=== PATIENT | female | born 2000 | race Caucasian/White ===

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

== ENCOUNTER 2020-06-26 15:26 | Emergency (ER) | payer OTHER, SELFPAY ==
[2020-06-26 16:03] VITALS: BP 144/86; PULSE 80; RESP 20; TEMP 37.1; O2SAT 98
[2020-06-26 16:10] VITALS: BP 144/86; PULSE 80; RESP 20; TEMP 37.1; O2SAT 98
--- NOTE | 2020-06-26 16:18 | ED.GENADULT ---
HPI - General Adult General Chief complaint: Wound/Laceration Stated complaint: right foot toe infection Time Seen by Provider: 06/26/20 16:18 Source: patient and RN notes reviewed Mode of arrival: ambulatory Limitations: no limitations History of Present Illness HPI narrative: 19-year-old female presents with complaints of right great toe with several sores, swelling, warmth, tenderness, and redness for the past 1-2 weeks. Johnathan reports smashing RT great toe 3 weeks ago, initially had drainage-resolved, over the past 2-3 days increase tenderness, redness, and swelling. Soak foot in peroxide and warm water without relief. Denies numbness or tingling. No weakness of toe. Denies fever or chills. Denies immobility. Exacerbation consists of wearing shoes, movement, and palpation of toe. No relieving factors. Break in skin. Immunizations up-to-date. Denies abdominal pain, nausea, or vomiting. Tolerating po intake well. LMP unknown due to control usage since age 16. The patient reports she have not been diagnosed with COVID-19. The patient reports she is not waiting for the results of a COVID-19 lab test. The patient reports she do not have weakness or fatigue. The patient reports she do not have a new or worsening cough or shortness of breath. Denies chest pain. The patient reports she do not have any rhinorrhea, congestion, sore throat, loss of taste or smell, or diarrhea. Denies recent traveling. Denies concerns for COVID-19 or exposures been home with limited outdoor exposure except for essential household needs, work, and return home. At this time, patient is not suspected of having COVID-19. Some parts of this dictation were generated by voice recognition software and may contain typographical and/or grammatical inaccuracies. Related Data Allergies Allergy/AdvReac Type Severity Reaction Status Date / Time No Known Allergies Allergy Verified 06/26/20 16:03 Review of Systems Review of Systems: Narrative: CONSTITUTIONAL: Denies fever, chills, sweats. EYES: Denies visual changes, redness, discharge. ENT: Denies rhinorrhea, congestion, sore throat, otalgia. CARDIOVASCULAR: Denies chest pain, palpitations, edema. RESPIRATORY: Denies dyspnea, wheezing, cough. GASTROINTESTINAL: Denies abdominal pain, nausea, vomiting, diarrhea. SKIN: Denies rash or itching. Complains of RT great toe with several sores, drainage-(resolved), swelling, warmth, tenderness, and redness. MUSCULOSKELETAL: Denies acute back pain or myalgia. Complains of RT great toe with swelling, warmth, tenderness, and redness. NEUROLOGIC: Denies numbness or focal weakness. PSYCHIATRIC: Denies anxiety or depression. All other systems reviewed are negative, except as documented in HPI and below. PMFSH Past Medical History Medical History (Updated 07/03/20 @ 03:24 by YUNG Lambert) Obese Surgical History Surgical History (Updated 07/03/20 @ 03:24 by YUNG Lambert) History of tonsillectomy Family History Family History (Updated 07/03/20 @ 03:26 by YUNG Lambert) Father Unknown family medical history Mother Hypertension Diabetes mellitus Social History Social History (Updated 07/03/20 @ 03:27 by YUNG Lambert) Smoking status: Never smoker Tobacco type: cigarettes Second hand tobacco smoke exposure: No Alcohol intake: never Substance use: never Living arrangements: with family Occupation/Education: occupation Gender identity (if verbalized by the patient): Female Sexual Orientation (if Verbalized by the Patient): Straight or Heterosexual Comments At time of signature, agree with nurse past medical, surgical, social, and family history. There is no relevant patient or family history pertinent to the presenting complaint. Exam Narrative: Exam Narrative: GENERAL: This is a well-nourished, well-developed patient, in no apparent distress. Talks in full sentences and ambul
== END 2020-06-26 16:35 | disposition home or self-care (01) ==
PROVIDERS: Emergency Provider Nurse Practitioner Family; PCP Pediatrics
DX: L03.031 Cellulitis of right toe (principal); L03.115 Cellulitis of right lower limb
CPT/HCPCS: 10060; 99213; G0463

== ENCOUNTER 2020-12-31 18:39 | Emergency (ER) | payer OTHER, SELFPAY ==
[2020-12-31 18:43] VITALS: BP 129/79; PULSE 92; RESP 18; TEMP 37.1; O2SAT 97
--- NOTE | 2020-12-31 18:48 | ED.EXTPRO ---
HPI - Extremity Problem General Chief complaint: Extremity Injury, Lower Stated complaint: right foot Source: patient Mode of arrival: ambulatory Limitations: no limitations History of Present Illness HPI Narrative: Patient is a 20-year-old female who presents complaining of right great toe pain. Patient reports that she has a ingrown toenail that she is having surgically removed in a few weeks. Patient reports increased pain and redness. Patient reports itching and excoriation between toes. She denies using [id number] medications. She denies any other complaints at this time. Related Data Allergies Allergy/AdvReac Type Severity Reaction Status Date / Time No Known Allergies Allergy Verified 12/31/20 18:42 Review of Systems Review of Systems: CONSTITUTIONAL: Denies fever, chills, or sweats. EYES: Denies visual changes, redness, or discharge. ENT: Denies rhinorrhea, congestion, sore throat, or otalgia. CARDIOVASCULAR: Denies chest pain, palpitations, or edema. RESPIRATORY: Denies cough or dyspnea. GASTROINTESTINAL: Denies abdominal pain, nausea, vomiting, or diarrhea. GENITOURINARY: Denies dysuria or hematuria. SKIN: Denies rash or itching. MUSCULOSKELETAL: Right great toe pain NEUROLOGIC: Denies headache, numbness, dizziness, or weakness. PSYCHIATRIC: Denies anxiety or depression. [facility] Past Medical History Medical History Obese Surgical History Surgical History History of tonsillectomy Family History Family History Father Unknown family medical history Mother Hypertension Diabetes mellitus Social History Social History Smoking status: Never smoker Tobacco type: cigarettes Second hand tobacco smoke exposure: No Alcohol intake: never Substance use: never Gender identity (if verbalized by the patient): Female Sexual Orientation (if Verbalized by the Patient): Straight or Heterosexual Comments At the time of signature, I have reviewed and agree with nursing past medical, surgical, social, and family history unless otherwise noted. Please see nursing chart for further information. There is no relevant family history pertinent to the presenting complaint. Exam Narrative: GENERAL: Well-appearing, well-nourished, and in no acute distress. HEAD: Normocephalic, atraumatic. EYES: EOMI. No redness or drainage. Conjunctiva are normal. ENT: Mucous membranes pink and moist. NECK: AROM. Supple. No lymphadenopathy. CHEST: No respiratory distress. HEART: Regular rate and rhythm. EXTREMITIES: Normal range of motion. SKIN: Erythema and edema to right great toe, no discharge noted, excoriation between toes. Good capillary refill, distal sensation intact NEURO: No focal deficits. Alert and oriented x3. Gait steady. PSYCH: Normal affect. No signs of depression or anxiety. Course Vital Signs Vital signs: Vital Signs Temperature 37.1 C 12/31/20 18:43 Pulse Rate 92 12/31/20 18:43 Respiratory Rate 18 12/31/20 18:43 Blood Pressure 129/79 12/31/20 18:43 Pulse Oximetry 97 12/31/20 18:43 Temperature 37.1 C 12/31/20 18:43 Pulse Rate 92 12/31/20 18:43 Respiratory Rate 18 12/31/20 18:43 Blood Pressure 129/79 12/31/20 18:43 Pulse Oximetry 97 12/31/20 18:43 Reviewed Critical Care Time Critical Care Time Critical Care Time: No Discharge Plan Discharge Clinical Impression: Fungal infection of skin, Ingrown nail of great toe of right foot Patient Disposition: Home, Self-Care Condition: Stable Instructions: Antibiotic Form Additional Instructions: Follow-up with podiatry as soon as possible. Follow-up with your PCP on Sunday. Take antibiotics as directed. Use antifungal cream as directed. If you have increased pain, redness o
[2020-12-31 18:52] VITALS: BP 129/79; PULSE 92; RESP 18; TEMP 37.1; O2SAT 97
== END 2020-12-31 19:05 | disposition home or self-care (01) ==
PROVIDERS: Emergency Provider Nurse Practitioner; PCP Pediatrics
DX: B36.9 Superficial mycosis, unspecified (principal); L60.0 Ingrowing nail; E66.9 Obesity, unspecified; Z68.32 Body mass index [BMI] 32.0-32.9, adult
CPT/HCPCS: 99213; G0463

== ENCOUNTER 2021-03-12 14:10 | Emergency (ER) | payer OTHER, SELFPAY ==
[2021-03-12 14:17] VITALS: BP 135/75; PULSE 92; RESP 14; TEMP 37.4; O2SAT 98
--- NOTE | 2021-03-12 14:31 | ED.GENADULT ---
HPI - General Adult General Chief complaint: Upper Respiratory Infection Stated complaint: cough stuffed nose Time Seen by Provider: 03/12/21 14:32 Source: patient Mode of arrival: ambulatory Limitations: no limitations History of Present Illness HPI narrative: 20-year-old female patient presents to the [facility] with complaints of cold symptoms for the past week. Patient does present today with a low-grade fever. Patient is complaining of a lot of drainage, mucus production, coughing, runny nose. Patient denies chest pain, shortness of breath, body aches or chills. Patient has not been vaccinated against Covid or had a flu shot this year. Patient states she did take 2 rapid test this week which have both come back negative. Related Data Home Medications Medication Instructions Recorded Confirmed No Home Medications 03/12/21 03/12/21 Allergies Allergy/AdvReac Type Severity Reaction Status Date / Time No Known Allergies Allergy Verified 03/12/21 14:27 Review of Systems Review of Systems: CONSTITUTIONAL: Positive low-grade fever denies chills, or sweats. EYES: Denies visual changes, redness, or discharge. ENT: Positive rhinorrhea, congestion, denies sore throat, or otalgia. CARDIOVASCULAR: Denies chest pain, palpitations, or edema. RESPIRATORY: Positive cough, denies dyspnea. GASTROINTESTINAL: Denies abdominal pain, nausea, vomiting, or diarrhea. GENITOURINARY: Denies dysuria or hematuria. SKIN: Denies rash or itching. MUSCULOSKELETAL: Denies back pain, joint pain, or myalgia. NEUROLOGIC: Denies headache, numbness, or weakness. PSYCHIATRIC: Denies anxiety or depression. [facility] Past Medical History Medical History Obese Surgical History Surgical History History of tonsillectomy Family History Family History Father Unknown family medical history Mother Hypertension Diabetes mellitus Social History Social History Smoking status: Never smoker Tobacco type: cigarettes Second hand tobacco smoke exposure: No Alcohol intake: never Substance use: never Gender identity (if verbalized by the patient): Female Sexual Orientation (if Verbalized by the Patient): Straight or Heterosexual Comments At the time of my signature I agree with nursing past medical history, surgical, social, and family history. There is no relevant family history pertinent to the presenting complaint. Exam Narrative: GENERAL: Well-appearing, well-nourished, and in no acute distress. HEAD: Normocephalic, atraumatic. EYES: PERRLA and EOMI. ENT: Nares with erythema and edema noted bilaterally, no active rhinorrhea or epistaxis. Mucous membranes moist. Posterior pharynx no erythema, tonsillectomy, exudates or lesions present. There is a little bit of fluid noted to the right TM. No erythema or current pain. NECK: Supple. No lymphadenopathy CHEST: Clear to auscultation. No respiratory distress. HEART: Regular rate and rhythm. No murmur heard. Normal peripheral pulses. ABDOMEN: Soft, nontender, nondistended, normal active bowel sounds. EXTREMITIES: Normal range of motion. No edema. SKIN: Warm, dry, no rash. NEURO: No focal deficits. Alert and oriented x3. Course Reevaluation(s) Reevaluation #1: Reevaluated patient notified her that she is positive for COVID-19 on the rapid test. We will go ahead and quarantine her for 10 days from the onset of her symptoms. Patient states the onset of her symptoms started on 03/07. She is quarantine and her return to work date is 03/18. Date: 03/12/21 Time: 15:33 Vital Signs Vital signs: Vital Signs Temperature 37.4 C 03/12/21 14:17 Pulse Rate 92 03/12/21 14:17 Respiratory Rate 14 03/12/21 14:17 Blood Pressure 135/75 03/12/21 14:17 Pulse Oximetry 98
== END 2021-03-12 15:37 | disposition home or self-care (01) ==
PROVIDERS: Emergency Provider Nurse Practitioner Family; PCP Pediatrics
DX: U07.1 COVID-19 (principal); E66.9 Obesity, unspecified; Z68.33 Body mass index [BMI] 33.0-33.9, adult
CPT/HCPCS: 87426; 99213; C9803; G0463

== ENCOUNTER 2021-06-06 10:03 | Emergency (ER) | payer SELFPAY ==
--- NOTE | 2021-06-06 10:04 | ED.URI ---
HPI - URI/Sore Throat General Chief Complaint: Urogenital-Female Stated Complaint: Urinary Problem Time Seen by Provider: 06/06/21 10:04 Source: patient Mode of arrival: ambulatory Limitations: no limitations History of Present Illness HPI Narrative: Ms. Streeter is a 20-year-old female patient presenting to the clinic today with complaints of possible UTI. She reports she is having some urinary retention. Reports that this is a common symptom for her when she has a UTI. She denies any fever, chills, abdominal pain, or flank pain Related Data Home Medications Medication Instructions Recorded Confirmed No Home Medications 03/12/21 03/12/21 Allergies Allergy/AdvReac Type Severity Reaction Status Date / Time No Known Allergies Allergy Verified 06/06/21 10:16 Review of Systems Review of Systems: Pertinent positives per HPI. Patient denies any fever, chills, rash, headache, visual changes, dizziness, cough, shortness of breath, chest pain, palpitations, nausea, vomiting, diarrhea, constipation, abdominal pain. PMFSH Past Medical History Medical History Obese Surgical History Surgical History History of tonsillectomy Family History Family History Father Unknown family medical history Mother Hypertension Diabetes mellitus Social History Social History Smoking status: Never smoker Tobacco type: cigarettes Second hand tobacco smoke exposure: No Alcohol intake: never Substance use: never Gender identity (if verbalized by the patient): Female Sexual Orientation (if Verbalized by the Patient): Straight or Heterosexual Comments At the time of my signature, I reviewed and agree with the nursing past medical, surgical, social, and family history. There is no relevant family history pertinent to the patient complaint. Exam Narrative: General: Well-developed, well nourished, in no apparent distress. Cardio: Regular rate and rhythm, s1 and s2 normal, no murmur appreciated. Resp: Clear to auscultation bilaterally, no rhonchi, rales, wheezing or rubs. Abdomen: Soft, pliable, bowel sounds present in all quadrants, non-tender to palpation, no organomegly, no CVAT tenderness. Course Course Emergency Course: Portions of this record may have been created with voice recognition software. Level of Care: Express Care Visit Vital Signs Vital signs: Vital signs reviewed MDM - URI/Sore Throat Differential Diagnosis Differential diagnosis: Likely other (Pyelonephritis, interstitial cystitis, ) Discharge Plan Discharge Clinical Impression: Urinary tract infection Qualifiers: Urinary tract infection type: acute cystitis Hematuria presence: with hematuria Qualified Code(s): N30.01 - Acute cystitis with hematuria Patient Disposition: Home, Self-Care Condition: Stable Instructions: Antibiotic Form, Urinary Tract Infection in Women (ED) Additional Instructions: Discussed patient's elevated blood pressure at the time of visit and recommend follow-up with primary care physician to have this reevaluated within the next week if symptoms persist. UA was positive for protein, leukocyte 1+, bili, 3+ blood, specific gravity was 1.030, urine was celina and cloudy. Increase fluids and stay well hydrated Wipe front to back. May use wet wipes. Avoid tub baths If sexually active- pee before and after intercourse. Wear cotton panties Avoid tight clothing up against the genitals Follow up with your PCP in 1 week if symptoms persist. Prescriptions: New nitrofurantoin monohyd/m-cryst [Macrobid] 100 mg capsule 100 mg PO Q12H 7 Days Qty: 14 RF: 0 No Action No Home Medications RF: 0 Follow-up/Referrals: Herlinda,Nelson Perdue MD [Yessi
[2021-06-06 10:08] VITALS: BP 146/97; PULSE 81; RESP 20; TEMP 36.5; O2SAT 100
[2021-06-06 10:17] VITALS: BP 146/97; PULSE 81; RESP 20; TEMP 36.5; O2SAT 100
== END 2021-06-06 10:30 | disposition home or self-care (01) ==
PROVIDERS: Emergency Provider Nurse Practitioner Family; PCP Pediatrics
DX: N30.01 Acute cystitis with hematuria (principal)
CPT/HCPCS: 81003; 87086; 87088; 99213; G0463